=== PATIENT | male | born 1940 | race Caucasian/White ===

== ENCOUNTER 2017-09-21 05:36 | Emergency (ER) | payer MEDICARE ==
[~2017-09-21] VITALS: Ht 165.1 cm; Wt 68.0 kg
[~2017-09-21 05:36] MED LIST: CARVEDILOL25 M1 PO; CLINDAMYCI600 MG/50 IV; FUROSEMIDE20 MG PO; HEP5I SC; IPRATROPIUM BROM3 M2 HHN; LAC PO; LEVAQUIN750 MG/150 IV; LIPI20 PO; PROAIR HFA0.09 MG/A1 INH; PULMICORT0.5 MG/2 M IH
[2017-09-21 06:28] LABS: CALCIUM 8.7 mg/dL (8.5-10.1); CARBON DIOXIDE 33.1 mmol/L (21-32); CHLORIDE SERUM 97 mmol/L (98-107); GLUCOSE SERUM 155 mg/dL (74-106); POTASSIUM SERUM 4.1 mmol/L (3.5-5.1); SODIUM SERUM 135 mmol/L (136-145)
[2017-09-21 06:33] LABS: ALKALINE PHOSPHATASE 80 U/L (46-116); ALT/SGPT 42 U/L (16-63); AST/SGOT 26 U/L (15-37); BILIRUBIN TOTAL 0.55 mg/dL (0.20-1.00); LIPASE 113 IU/L (73-393); TOTAL PROTEIN, SERUM 6.9 g/dL (6.4-8.2)
[2017-09-21 06:35] LABS: ALBUMIN 2.4 g/dL (3.4-5.0)
[2017-09-21 07:13] LABS: PLATELET COUNT 605 x10^3mcL (130-400); RED CELL DISTRIBUTION WIDTH 17.9 % (11.5-14.5)
[2017-09-21 08:09] LABS: ATYPICAL LYMPH 3 %; BAND NEUTROPHIL 3 % (0-10); MONOCYTE 3 % (0-7); SEGMENTED NEUTROPHILS 52 % (37-75)
[2017-09-21 08:10] LABS: PLATELET MORPHOLOGY PLATELETS INCREASED; ovalocyte/elliptocyte 1+; rbc morphology (normal/abnorm) ABNORMAL (NORMAL)
[2017-09-21 09:58] VITALS: BP 99/41
== END 2017-09-21 09:58 | disposition short-term general hospital (02) ==
LOC: ED 05:36
PROVIDERS: Emergency Medicine
DX: J96.00 Acute respiratory failure, unspecified whether with hypoxia or hypercapnia (principal); J44.1 Chronic obstructive pulmonary disease with (acute) exacerbation; J84.10 Pulmonary fibrosis, unspecified; I48.91 Unspecified atrial fibrillation; D72.829 Elevated white blood cell count, unspecified; I10 Essential (primary) hypertension; E78.00 Pure hypercholesterolemia, unspecified; F17.200 Nicotine dependence, unspecified, uncomplicated; I25.2 Old myocardial infarction; Z86.79 Personal history of other diseases of the circulatory system
CPT/HCPCS: 36600; 83880; J1956; J2930; J3010; J3475; J7030; J7040; J7613; J7644; Q0092

== ENCOUNTER 2017-09-24 14:23 | Emergency (ER) | payer MEDICARE ==
[2017-09-24] MEDS ORDERED: LASIX20 MG PO (14:45)
[2017-09-24] MEDS ORDERED: PREDNISONE10 MG PO (14:46)
[2017-09-24] MEDS ORDERED: SPIRIVA18 MC1 INH (14:47)
[2017-09-24] MEDS ORDERED: ALBUTEROL SULFAT3 ML NEB (14:49)
[2017-09-24] MEDS ORDERED: ATRUD NEB (14:49)
[2017-09-24 14:51] LABS: BASOPHIL % 0.1 % (0-2); PLATELET COUNT 339 x10^3mcL (130-400)
[2017-09-24] MEDS ORDERED: CEFPODOXIME PR200 MG PO (14:51)
[2017-09-24] MEDS ORDERED: DOXYCYCLINE MO100 MG PO (14:52)
[2017-09-24] MEDS ORDERED: NICODERM C21 MG/241 TOP (14:55)
[2017-09-24] MEDS ORDERED: TRAMADOL HCL50 MG PO (14:55)
[2017-09-24] MEDS ORDERED: K-TAB10 MEQ PO (14:56)
[2017-09-24] MEDS ORDERED: NOR10T PO (14:56)
[2017-09-24 14:58] LABS: CALCIUM 8.5 mg/dL (8.5-10.1); CARBON DIOXIDE 34.5 mmol/L (21-32); CHLORIDE SERUM 97 mmol/L (98-107); CREATININE SERUM 0.9 mg/dL (0.7-1.3); GLUCOSE SERUM 140 mg/dL (74-106); POTASSIUM SERUM 4.7 mmol/L (3.5-5.1); SODIUM SERUM 134 mmol/L (136-145)
[2017-09-24] MEDS ORDERED: VENTOLIN H0.09 MG/A1 INH (14:58)
[2017-09-24] MEDS ORDERED: OMEPRAZOLE20 M4 PO (14:59)
[2017-09-24] MEDS ORDERED: ADV250/50 INH (15:00)
[2017-09-24] MEDS ORDERED: ASPIR 8181 MG PO (15:01)
[2017-09-24] MEDS ORDERED: DOK COLACE100 MG PO (15:01)
[2017-09-24] MEDS ORDERED: AMIODARONE HCL200 MG PO (15:01)
[2017-09-24 15:02] LABS: ALKALINE PHOSPHATASE 89 U/L (46-116); ALT/SGPT 43 U/L (16-63); AST/SGOT 28 U/L (15-37); BILIRUBIN TOTAL 0.6 mg/dL (0.20-1.00); TOTAL PROTEIN, SERUM 6.6 g/dL (6.4-8.2)
[2017-09-24 15:04] LABS: ALBUMIN 2.4 g/dL (3.4-5.0)
[2017-09-24 15:05] LABS: RED CELL DISTRIBUTION WIDTH 18.4 % (11.5-14.5)
[2017-09-24 20:13] LABS: microscopic required? NO
[2017-09-24 20:33] LABS: urine erythrocyte NEGATIVE (NEGATIVE)
[2017-09-24 21:16] VITALS: BP 129/66
== END 2017-09-24 21:10 | disposition short-term general hospital (02) ==
LOC: ED 14:23
PROVIDERS: Emergency Medicine
DX: J18.9 Pneumonia, unspecified organism (principal); J44.1 Chronic obstructive pulmonary disease with (acute) exacerbation; I10 Essential (primary) hypertension; E78.00 Pure hypercholesterolemia, unspecified; I25.2 Old myocardial infarction
CPT/HCPCS: 36600; 83880; J0696; J2930; J3010; J3475; J7030; J7613; J7644; Q0092